=== PATIENT | male | born 1935 | race Caucasian/White ===

== ENCOUNTER 2016-11-12 08:02 | Emergency (ER) | payer MEDICARE, OTHER ==
[~2016-11-12] VITALS: Ht 182.9 cm; Wt 100.0 kg
[~2016-11-12 08:02] MED LIST: ARIC5TAB PO; CARV12.52 PO; CYAN1000P IM; DABI150 PO; DIGO0.12 PO; ESCI20TA PO; FISH1200 PO; LEVO75TA3 PO; METF500 PO; PROT40TA PO; RAMI5CAP36 PO; ZOCO40TA PO
[2016-11-12 08:13] VITALS: BP 143/78; PULSE 69; RESP 18; TEMP 97.4; O2SAT 98
[2016-11-12] MEDS ORDERED: LEVO75TA3 PO (08:28)
[2016-11-12] MEDS ORDERED: PANT40TA3 PO (08:28)
[2016-11-12] MEDS ORDERED: CYAN1000P IM (08:28)
[2016-11-12] MEDS ORDERED: PRAD150C PO (08:28)
[2016-11-12] MEDS ORDERED: RAMI5CAP PO (08:28)
[2016-11-12] MEDS ORDERED: DONE10TA7 PO (08:28)
[2016-11-12] MEDS ORDERED: CITA20TA4 PO (08:28)
[2016-11-12] MEDS ORDERED: CARV12.52 PO (08:28)
[2016-11-12] MEDS ORDERED: METF1000 PO (08:28)
[2016-11-12] MEDS ORDERED: SIMV40TA PO (08:28)
[2016-11-12] MEDS ORDERED: FISH120014 PO (08:28)
[2016-11-12] MEDS ORDERED: DIGO0.127 PO (08:28)
--- NOTE | 2016-11-12 08:34 | PD ---
HPI Chief Complaint: Fall Time Seen by Provider: 08:05 Travel History International Travel<30 days: No Contact w/Intl Traveler<30days: No Traveled to known affect area: No History of Present Illness HPI This patient has a assisted living facility patient who was walking in the courtyard of the facility. He tripped and fell and landed face first. He has history of CVA and has issues with aphasia but can answer questions gesture no and has normal mental status. He is not having any head or neck pain. No LOC. He denies any presyncopal symptoms. He feels fine at this point but does have facial and hand abrasions and a small cut on his lip. Duration 1 hour, symptoms severity is mild. PFSH Past Medical History Hx Anticoagulant Therapy: Yes Arthritis: Yes Asthma: No Atrial Fibrillation: Yes Autoimmune Disease: No Anxiety: No Depression: No Heart Rhythm Problems: Yes (Atrial fibrillation) Cancer: Yes (skin) Cardiac Catheterization: Yes Cardiovascular Problems: Yes High Cholesterol: Yes Chemotherapy: No Chest Pain: No Congestive Heart Failure: Yes COPD: Yes Cerebrovascular Accident: Yes (tia's,cva) Coronary Artery Disease: Yes Diabetes: Yes Patient Takes Glucophage: Yes Endocrine: Yes GERD: Yes Genitourinary: Yes (enlarged prostate) Hiatal Hernia: No Hypertension: Yes Immune Disorder: No Implanted Vascular Access Dvce: Yes Kidney Stones: No Musculoskeletal: Yes Neurologic: No Psychiatric: No Reproductive: No Respiratory: Yes Migraines: No Myocardial Infarction: Yes (x1 1996) Radiation Therapy: No Renal Failure: No Seizures: No Sickle Cell Disease: No Sleep Apnea: No Thyroid Disease: Yes Ulcer: No Influenza Vaccination: Yes Past Surgical History Abdominal Surgery: No AICD: Yes Arteriovenous Shunt: No Cardiac Surgery: Yes (CABG 1996, AICD implant 2008) Coronary Artery Bypass Graft: Yes (5 vessels bypass) Ear Surgery: No Endocrine Surgery: No Eye Surgery: Yes (Cataract removal bilaterally) Genitourinary Surgery: Yes (TURP- several ) Gynecologic Surgery: No Insulin Pump: No Joint Replacement: No Oral Surgery: No Pacemaker: No Thoracic Surgery: No Tonsillectomy: Yes (t & a) Other Surgery: Yes Social History Alcohol Use: Yes (occas, beer or wine) Tobacco Use: No Substance Use: No Allergies-Medications (Allergen,Severity, Reaction): Uncoded Allergies: paper tape (Allergy, Mild, rash, 07/22/16) Reported Meds & Prescriptions Reported Meds & Active Scripts Active Zocor 40 mg (Simvastatin) 40 Mg Tab 0.5 Tab PO HS Ramipril 5 mg (Ramipril) 5 Mg Cap 1 Cap PO DAILY Protonix (Pantoprazole Sodium) 40 Mg Tabdr 40 Mg PO DAILY Glucophage 500 mg (Metformin HCl) 500 Mg Tab 1,000 Mg PO DAILY Levothyroxine 75 mcg (Levothyroxine Sodium) 75 Mcg Tab 75 Mcg PO DAILY Escitalopram Oxalate 20 Mg Tab 20 Mg PO DAILY Digoxin 0.125 mg (Digoxin) 0.125 Mg Tab 0.125 Mg PO DAILY Pradaxa 150 Mg Cap (Dabigatran) 150 Mg Cap 150 Mg PO BID Reported Vitamin B12 (Cyanocobalamin) 1,000 Mcg/Ml Inj 1,000 Mcg IM MONTHLY Fish Oil ([place]-3 Fatty Acids) 1,200 Mg Cap 1 Cap PO DAILY Aricept (Donepezil HCl) 5 Mg Tab 10 Mg PO HS Carvedilol 12.5 mg (Carvedilol) 12.5 Mg Tab 12.5 Mg PO BID Review of Systems General / Constitutional: No: Fever HENT: No: Headaches Cardiovascular: No: Chest Pain or Discomfort Respiratory: No: Cough Physical Exam Narrative GENERAL: Well-nourished, well-developed patient in no apparent distress. SKIN: Warm and dry. Has some minor abrasions to both hands HEAD: Atraumatic. Normocephalic. There is a lipoma to the right forehead. He has facial abrasions but no head injury. Abrasions are on the cheek and lip and nasal bridge. EYES: Pupils equal and round. No scleral icterus. No injection or drainage. ENT: No nasal bleeding or discharge. Mucous membranes pink and moist. There is a very small laceration in the center upper lip 0.5 cm right at the vermilion border. No loose dentition but 1 upper incisor is chipped NECK: Trachea midline. No JVD. No midline tenderness CARDIOVASCULAR: Regular rate and rhythm. No murmur appreciated. RESPIRATORY: No accessory muscle use. Clear to auscultation. Breath sounds equal bilaterally. GASTROINTESTINAL: Abdomen soft, non-tender, nondistended. Hepatic and splenic margins not palpable. MUSCULOSKELETAL: No obvious deformities. No clubbing. No cyanosis. No edema. NEUROLOGICAL: Awake and alert. No obvious cranial nerve deficits. Motor grossly within normal limits. He can say yes or no but does not elaborate beyond that. PSYCHIATRIC: Appropriate mood and affect; insight and judgment normal. Data Data Last Documented VS Vital Signs Date Time Temp Pulse Resp B/P Pulse Ox O2 Delivery O2 Flow Rate FiO2 11/12/16 08:17 69 Room Air 11/12/16 08:13 97.4 18 143/78 98 MDM Medical Decision Making Medical Screen Exam Complete: Yes Emergency Medical Condition: Yes Medical Record Reviewed: Yes Differential Diagnosis Concussion , contusion, laceration Narrative Course I have reviewed the patient's electronic medical record. Patient has what appears to be mechanical fall onto his face with abrasions and a small laceration. Due to its location on the vermilion border I placed 1 stitch as below LACERATION LOCATION: Upper lip LENGTH: 0.5 cm NUMBER OF STITCHES/BRII: 1 REPAIR: The area of the laceration was prepped with Betadine and sterilely draped. No anesthesia needed for one suture . The wound was copiously irrigated and explored without evidence of foreign body, tendon injury or neurovascular injury. The wound was closed using 5-0 Vicryl. This was a single layer repair. A sterile dressing was applied. The patient was advised to keep the dressing clean and dry. Patient tolerated the procedure well. He is given head injury precautions. Despite being on blood thinner, he has no LOC and no headache and is at neurologic baseline. Therefore no indication for emergent brain CT in this asymptomatic patient. His abrasions are cleaned. I gave him a tetanus booster. He is diabetic but his Accu-Chek is normal Diagnosis Primary Impression: Head injury due to trauma Qualified Code: S09.90XA - Head injury due to trauma, initial encounter Additional Impression: Laceration of lip Qualified Code: S01.511A - Laceration of lip, initial encounter Additional Instructions: Follow-up with halfway M.D. Use head injury precautions Med/Other Pt SpecificInfo: Other Disposition: 03 DISCHARGE TO SNF Condition: Stable Brian Rosen MD Nov 12, 2016 08:34
== END 2016-11-12 09:37 | disposition home or self-care (01) ==
LOC: PHED 08:02
DX: S00.81XA Abrasion of other part of head, initial encounter (principal); E78.00 Pure hypercholesterolemia, unspecified; S60.519A Abrasion of unspecified hand, initial encounter; S01.511A Laceration without foreign body of lip, initial encounter; J44.9 Chronic obstructive pulmonary disease, unspecified; E11.9 Type 2 diabetes mellitus without complications; Z79.01 Long term (current) use of anticoagulants; D17.9 Benign lipomatous neoplasm, unspecified; W18.30XA Fall on same level, unspecified, initial encounter; Y93.9 Activity, unspecified; Y92.9 Unspecified place or not applicable; Y99.9 Unspecified external cause status; I10 Essential (primary) hypertension; I48.91 Unspecified atrial fibrillation
CPT/HCPCS: 12011

== ENCOUNTER 2017-04-15 06:31 | Observation (INO) | payer MEDICARE, OTHER ==
[~2017-04-15] VITALS: Ht 188 cm; Wt 109.0 kg
[~2017-04-15 06:31] MED LIST changes: -ARIC5TAB PO; +CITA20TA4 PO; -DABI150 PO; -DIGO0.12 PO; +DIGO0.127 PO; +DONE10TA7 PO; -ESCI20TA PO; -FISH1200 PO; +FISH120014 PO; +METF1000 PO; -METF500 PO; +PANT40TA3 PO; +PRAD150C PO; -PROT40TA PO; +RAMI5CAP PO; -RAMI5CAP36 PO; +SIMV40TA PO; -ZOCO40TA PO
[2017-04-15 06:36] VITALS: BP 154/74; PULSE 59; TEMP 97.7; O2SAT 96
[2017-04-15 06:44] VITALS: O2SAT 98
[2017-04-15] MEDS ORDERED: SODIUM CHLORIDE 0.9% FLUSH 10 ML FLUSH IVF PRN (06:45)
[2017-04-15] MEDS ORDERED: TYLE325T PO (06:56)
[2017-04-15] MEDS ORDERED: DIGO0.25 PO (06:56)
[2017-04-15] MEDS ORDERED: DIGO0.12 PO (06:56)
--- NOTE | 2017-04-15 06:57 | RADRPT ---
EXAM DATE/TIME: 04/15/2017 06:36 [facility] COMPARISON: CHEST SINGLE AP, July 22, 2016, 15:27. INDICATIONS : Chest pain. MEDICAL HISTORY : None. SURGICAL HISTORY : Defibrillator. ENCOUNTER: Initial ACUITY: 1 day PAIN SCORE: 2/10 LOCATION: Bilateral chest FINDINGS: A single view of the chest demonstrates the lungs to be symmetrically aerated without evidence of mas s, infiltrate or effusion. The heart size is enlarged. There is evidence of previous cardiothoracic surgery. There is a pacemaker overlying the left chest. No significant changes compared to the prior exam.. CONCLUSION: No acute disease. No significant change has occurred. Charan Rojas MD on April 15, 2017 at 6:55 Board Certified Radiologist. This report was verified electronically.
[2017-04-15 07:03] LABS: AUTOMATED NEUTROPHIL # 6.1 TH/MM3 (1.8-7.7); BASOPHIL # 0.1 TH/MM3 (0-0.2); EOSINOPHIL # 0.2 TH/MM3 (0-0.4); EOSINOPHIL % 2.3 % (0.0-4.0); HEMATOCRIT 34.1 % (39.0-51.0); HEMO FLAGS DIFF FINAL; LYMPH % 16.9 % (9.0-44.0); LYMPHOCYTE # 1.5 TH/MM3 (1.0-4.8); MEAN CELL VOLUME 94.9 FL (80.0-100.0); MEAN CORPUSCULAR HEMOGLOBIN 32.2 PG (27.0-34.0); MEAN CORPUSCULAR HGB CONC 33.9 % (32.0-36.0); MONO % 9.8 % (0.0-8.0); PLATELET COUNT 239 TH/MM3 (150-450); RED BLOOD COUNT 3.59 MIL/MM3 (4.50-5.90); RED CELL DISTRIBUTION WIDTH 13.8 % (11.6-17.2); WHITE BLOOD COUNT 8.8 TH/MM3 (4.0-11.0)
--- NOTE | 2017-04-15 07:18 | PD ---
HPI Chief Complaint: Chest Pain Time Seen by Provider: 07:05 Travel History International Travel<30 days: No Contact w/Intl Traveler<30days: No Traveled to known affect area: No History of Present Illness HPI 82yo M with PMH of CVA with aphasia, DM, HTN, chronic afib presents from [facility] for chest pain. As per triage note, EVAC states that pt complained of chest pain radiating to left jaw when staff gave him his morning medication. Pt can state yes and no. When asked if he had chest pain this morning, he said yes. When asked if he had chest pain now, he said no. Denies any sob, n/v, abdominal pain. However, history is very limited. As per my nurse, pt had aspirin 162mg and nitroglycerin spray prior to arrival. PFSH Past Medical History Hx Anticoagulant Therapy: Yes Arthritis: Yes Asthma: No Atrial Fibrillation: Yes Autoimmune Disease: No Anxiety: No Depression: No Heart Rhythm Problems: Yes (Atrial fibrillation) Cancer: Yes (skin) Cardiac Catheterization: Yes Cardiovascular Problems: Yes High Cholesterol: Yes Chemotherapy: No Chest Pain: No Congestive Heart Failure: Yes COPD: Yes Cerebrovascular Accident: Yes Coronary Artery Disease: Yes Diabetes: Yes Patient Takes Glucophage: Yes Endocrine: Yes GERD: Yes Genitourinary: Yes (enlarged prostate) Hiatal Hernia: No Hypertension: Yes Immune Disorder: No Implanted Vascular Access Dvce: Yes Kidney Stones: No Musculoskeletal: Yes Neurologic: No Psychiatric: No Reproductive: No Respiratory: Yes Migraines: No Myocardial Infarction: Yes (x1 1996) Radiation Therapy: No Renal Failure: No Seizures: No Sickle Cell Disease: No Sleep Apnea: No Thyroid Disease: Yes Ulcer: No Tetanus Vaccination: Unknown Past Surgical History Abdominal Surgery: No AICD: Yes Arteriovenous Shunt: No Cardiac Surgery: Yes (CABG 1996, AICD implant 2008) Coronary Artery Bypass Graft: Yes (5 vessels bypass) Ear Surgery: No Endocrine Surgery: No Eye Surgery: Yes (Cataract removal bilaterally) Genitourinary Surgery: Yes (TURP- several ) Gynecologic Surgery: No Insulin Pump: No Joint Replacement: No Oral Surgery: No Pacemaker: No Thoracic Surgery: No Tonsillectomy: Yes (t & a) Other Surgery: Yes Social History Alcohol Use: Yes (occas, beer or wine) Tobacco Use: No Substance Use: No Allergies-Medications (Allergen,Severity, Reaction): Uncoded Allergies: paper tape (Allergy, Mild, rash, 07/22/16) Reported Meds & Prescriptions Reported Meds & Active Scripts Active Reported Digoxin 0.25 Mg Tab 0.25 Mg PO ZTUTH Digoxin 0.125 Mg Tab 0.125 Mg PO ZSUMOWEFR SA Tylenol (Acetaminophen) 325 Mg Tab 650 Mg PO BID PRN Simvastatin 40 Mg Tab 40 Mg PO HS Ramipril 5 Mg Cap 5 Mg PO DAILY Pradaxa (Dabigatran) 150 Mg Cap 150 Mg PO BID Pantoprazole (Pantoprazole Sodium) 40 Mg Tab 40 Mg PO DAILY Metformin (Metformin HCl) 1,000 Mg Tab 1,000 Mg PO DAILY With a meal Levothyroxine (Levothyroxine Sodium) 75 Mcg Tab 75 Mcg PO DAILY Donepezil 10 Mg Tab 10 Mg PO HS Cyanocobalamin Inj (Cyanocobalamin) 1,000 Mcg/Ml Inj 1,000 Mcg IM Q30D Citalopram (Citalopram Hydrobromide) 20 Mg Tab 20 Mg PO DAILY Carvedilol 12.5 Mg Tab 12.5 Mg PO BID Review of Systems Except as stated in HPI: all other systems reviewed are Neg Physical Exam Narrative GENERAL: 82yo M not in distress. SKIN: Focused skin assessment warm/dry. HEAD: Atraumatic. Normocephalic. . NECK: Trachea midline. No JVD. CARDIOVASCULAR: Regular rate and rhythm. No murmur appreciated. RESPIRATORY: No accessory muscle use. Clear to auscultation. Breath sounds equal bilaterally. GASTROINTESTINAL: Abdomen soft, non-tender, nondistended. No rebound tenderness or guarding. MUSCULOSKELETAL: No obvious deformities. No clubbing. No cyanosis. No edema. NEUROLOGICAL: Awake and alert. Moves all extremities. Aphasic at baseline. Data Data Last Documented VS Vital Signs Date Time Temp Pulse Resp B/P Pulse Ox O2 Delivery O2 Flow Rate FiO2 04/15/17 07:38 100 20 135/64 97 Room Air 04/15/17 06:36 97.7 Orders B-Type Natriuretic Peptide (04/15/17 06:40) Ckmb (Isoenzyme) Profile (04/15/17 06:40) Complete Blood Count With Diff (04/15/17 06:40) Comprehensive Metabolic Panel (04/15/17 06:40) Digoxin (04/15/17 06:40) Prothrombin Time / Inr (Pt) (04/15/17 06:40) Act Partial Throm Time (Ptt) (04/15/17 06:40) Troponin I (04/15/17 06:40) Chest, Single Ap (04/15/17 06:40) Ecg Monitoring (04/15/17 06:40) Iv Access Insert/Monitor (04/15/17 06:40) Oximetry (04/15/17 06:40) Sodium Chloride 0.9% Flush (Ns Flush) (04/15/17 06:45) Electrocardiogram (04/15/17 ) Potassium Chloride (Kcl) (04/15/17 09:00) Admit Order (Ed Use Only) (04/15/17 09:02) Labs Laboratory Tests Test 04/15/17 06:45 White Blood Count 8.8 TH/MM3 Red Blood Count 3.59 MIL/MM3 Hemoglobin 11.6 GM/DL Hematocrit 34.1 % Mean Corpuscular Volume 94.9 FL Mean Corpuscular Hemoglobin 32.2 PG Mean Corpuscular Hemoglobin 33.9 % Concent Red Cell Distribution Width 13.8 % Platelet Count 239 TH/MM3 Mean Platelet Volume 7.1 FL Neutrophils (%) (Auto) 70.0 % Lymphocytes (%) (Auto) 16.9 % Monocytes (%) (Auto) 9.8 % Eosinophils (%) (Auto) 2.3 % Basophils (%) (Auto) 1.0 % Neutrophils # (Auto) 6.1 TH/MM3 Lymphocytes # (Auto) 1.5 TH/MM3 Monocytes # (Auto) 0.9 TH/MM3 Eosinophils # (Auto) 0.2 TH/MM3 Basophils # (Auto) 0.1 TH/MM3 CBC Comment DIFF FINAL Differential Comment Prothrombin Time 10.9 SEC Prothromb Time International 1.0 RATIO Ratio Activated Partial 27.9 SEC Thromboplast Time Sodium Level 142 MEQ/L Potassium Level 3.3 MEQ/L Chloride Level 103 MEQ/L Carbon Dioxide Level 29.2 MEQ/L Anion Gap 10 MEQ/L Blood Urea Nitrogen 16 MG/DL Creatinine 0.85 MG/DL Estimat Glomerular Filtration 86 ML/MIN Rate Random Glucose 114 MG/DL Calcium Level 8.7 MG/DL Total Bilirubin 0.9 MG/DL Aspartate Amino Transf 14 U/L (AST/SGOT) Alanine Aminotransferase 25 U/L (ALT/SGPT) Alkaline Phosphatase 40 U/L Total Creatine Kinase 58 U/L Troponin I 0.03 NG/ML B-Type Natriuretic Peptide 254 PG/ML Total Protein 7.2 GM/DL Albumin 3.8 GM/DL Digoxin Level 0.9 NG/ML MDM Medical Decision Making Medical Screen Exam Complete: Yes Emergency Medical Condition: Yes Interpretation(s) EKG: Paced rhythm. RBBB. No ST segment elevation in concordance. Last Impressions Chest X-Ray 04/15/17 0640 Signed Impressions: Service Date/Time: , April 15, 2017 06:36 - CONCLUSION: No acute disease. No significant change has occurred. Charan Rojas MD Laboratory Tests Test 04/15/17 06:45 White Blood Count 8.8 TH/MM3 (4.0-11.0) Red Blood Count 3.59 MIL/MM3 (4.50-5.90) Hemoglobin 11.6 GM/DL (13.0-17.0) Hematocrit 34.1 % (39.0-51.0) Mean Corpuscular Volume 94.9 FL (80.0-100.0) Mean Corpuscular Hemoglobin 32.2 PG (27.0-34.0) Mean Corpuscular Hemoglobin 33.9 % Concent (32.0-36.0) Red Cell Distribution Width 13.8 % (11.6-17.2) Platelet Count 239 TH/MM3 (150-450) Mean Platelet Volume 7.1 FL (7.0-11.0) Neutrophils (%) (Auto) 70.0 % (16.0-70.0) Lymphocytes (%) (Auto) 16.9 % (9.0-44.0) Monocytes (%) (Auto) 9.8 % (0.0-8.0) Eosinophils (%) (Auto) 2.3 % (0.0-4.0) Basophils (%) (Auto) 1.0 % (0.0-2.0) Neutrophils # (Auto) 6.1 TH/MM3 (1.8-7.7) Lymphocytes # (Auto) 1.5 TH/MM3 (1.0-4.8) Monocytes # (Auto) 0.9 TH/MM3 (0-0.9) Eosinophils # (Auto) 0.2 TH/MM3 (0-0.4) Basophils # (Auto) 0.1 TH/MM3 (0-0.2) CBC Comment DIFF FINAL Differential Comment Prothrombin Time 10.9 SEC (9.8-11.6) Prothromb Time International 1.0 RATIO Ratio Activated Partial 27.9 SEC Thromboplast Time (24.3-30.1) Sodium Level 142 MEQ/L (136-145) Potassium Level 3.3 MEQ/L (3.5-5.1) Chloride Level 103 MEQ/L (98-107) Carbon Dioxide Level 29.2 MEQ/L (21.0-32.0) Anion Gap 10 MEQ/L (5-15) Blood Urea Nitrogen 16 MG/DL (7-18) Creatinine 0.85 MG/DL (0.60-1.30) Estimat Glomerular Filtration 86 ML/MIN (>89) Rate Random Glucose 114 MG/DL (74-106) Calcium Level 8.7 MG/DL (8.5-10.1) Total Bilirubin 0.9 MG/DL (0.2-1.0) Aspartate Amino Transf 14 U/L (15-37) (AST/SGOT) Alanine Aminotransferase 25 U/L (12-78) (ALT/SGPT) Alkaline Phosphatase 40 U/L (45-117) Total Creatine Kinase 58 U/L (39-308) Troponin I 0.03 NG/ML (0.02-0.05) B-Type Natriuretic Peptide 254 PG/ML (0-100) Total Protein 7.2 GM/DL (6.4-8.2) Albumin 3.8 GM/DL (3.4-5.0) Digoxin Level 0.9 NG/ML (0.8-2.0) Differential Diagnosis ACS vs. atypical chest pain vs. pneumonia Narrative Course 82yo M who is aphasic here with chest pain today. History is limited but pt states yes to having chest pain today and no to currently having chest pain. Pt also confirmed that with my nurse separately and said yes when she asked if he was having chest pain radiating to his jaw. He said no to having chest pain now. Then gave her a thumbs up. Labs reviewed, no leukocytosis. Troponin negative at 0.03. BNP 254. K: 3.3, replaced orally. Digoxin level therapeutic at 0.9. CXR negative. Given that pt did have chest pain and work up so far is negative, will admit to chest pain center for serial EKG and cardiac enzymes. Diagnosis Primary Impression: Chest pain Qualified Code: R07.9 - Chest pain, unspecified type Admitting Information Admitting Physician Requests: Lisset Ortega DO Apr 15, 2017 07:18
[2017-04-15 07:22] LABS: APTT (PATIENT) 27.9 SEC (24.3-30.1); PROTHROMBIN TIME - PATIENT 10.9 SEC (9.8-11.6)
[2017-04-15 07:26] LABS: ALT (GPT) 25 U/L (12-78); ANION GAP 10 MEQ/L (5-15); AST (GOT) 14 U/L (15-37); BICARBONATE 29.2 MEQ/L (21.0-32.0); BLOOD UREA NITROGEN 16 MG/DL (7-18); CHLORIDE 103 MEQ/L (98-107); GLOMERULAR FILTRATION RATE 86 ML/MIN (>89); POTASSIUM 3.3 MEQ/L (3.5-5.1); SODIUM (NA) 142 MEQ/L (136-145)
[2017-04-15 07:38] VITALS: BP 135/64; PULSE 100; RESP 20; O2SAT 97
[2017-04-15 07:42] LABS: ALKALINE PHOSPHATASE 40 U/L (45-117); DIGOXIN 0.9 NG/ML (0.8-2.0); TOTAL BILIRUBIN ADULT 0.9 MG/DL (0.2-1.0)
[2017-04-15 07:44] LABS: CREATINE KINASE 58 U/L (39-308)
[2017-04-15] MEDS ORDERED: POTASSIUM CHLORIDE 20 MEQ CONTROLLED RELEASE TAB PO ONE (09:00)
[2017-04-15 09:37] VITALS: BP 140/68; PULSE 60; RESP 18; O2SAT 97
[2017-04-15] MEDS ORDERED: SODIUM CHLORIDE 0.9% FLUSH 5 ML FLUSH IVF PRN (10:30)
[2017-04-15] MEDS ORDERED: ACETAMINOPHEN 500 MG CPLT PO PRN (10:30)
[2017-04-15] MEDS ORDERED: ONDANSETRON HCL 4 MG/2 ML VIAL IV PRN (10:30)
[2017-04-15] MEDS ORDERED: ACETAMINOPHEN/HYDROcodone 325 MG/7.5 MG TAB PO PRN (10:30)
--- NOTE | 2017-04-15 10:53 | HHI.HP ---
HPI Primary Care Physician Alyssa Pearce Chief Complaint Chest pain History of Present Illness This is a 82-year-old male that presents to ED via [facility] from [facility] with history of CAD, diabetes, CVA, dementia, hyperlipidemia, and defibrillator/ pacemaker with complaint of chest discomfort. Patient has had a stroke and has dementia and his story is somewhat difficult to ascertain. He is able to whisper that he had a heaviness this morning. He points to the left side of his chest and other times he'll point to the right side of his chest. Other times revealed denies having chest discomfort. He is unable to describe it any further. He is confused. He thinks that PABLO is the president. Does not know the month or year. Does not know where he lives. Review of Systems ROS Limitations: Poor Historian, Other Cardiovascular: COMPLAINS OF: Chest pain Past Family Social History Allergies: Uncoded Allergies: paper tape (Allergy, Mild, rash, 07/22/16) Past Medical History CVA, diabetes, CAD with bypass, chronic A. fib, paced rhythm, defibrillator, dementia, GERD, hypothyroidism. Past Surgical History He has had a bypass. He has a defibrillator/pacemaker. Reported Medications Reported Meds & Active Scripts Active Reported Digoxin 0.25 Mg Tab 0.25 Mg PO ZTUTH Digoxin 0.125 Mg Tab 0.125 Mg PO ZSUMOWEFR SA Tylenol (Acetaminophen) 325 Mg Tab 650 Mg PO BID PRN Simvastatin 40 Mg Tab 40 Mg PO HS Ramipril 5 Mg Cap 5 Mg PO DAILY Pradaxa (Dabigatran) 150 Mg Cap 150 Mg PO BID Pantoprazole (Pantoprazole Sodium) 40 Mg Tab 40 Mg PO DAILY Metformin (Metformin HCl) 1,000 Mg Tab 1,000 Mg PO DAILY With a meal Levothyroxine (Levothyroxine Sodium) 75 Mcg Tab 75 Mcg PO DAILY Donepezil 10 Mg Tab 10 Mg PO HS Cyanocobalamin Inj (Cyanocobalamin) 1,000 Mcg/Ml Inj 1,000 Mcg IM Q30D Citalopram (Citalopram Hydrobromide) 20 Mg Tab 20 Mg PO DAILY Carvedilol 12.5 Mg Tab 12.5 Mg PO BID Active Ordered Medications Current Medications Medications (Trade) Dose Ordered Sig/Antonio Route Start Time Stop Time Status Last Admin (NS Flush) 2 ml UNSCH PRN IVF 04/15/17 06:45 (NS Flush) 2 ml UNSCH PRN IVF 04/15/17 10:30 UNV (NS Flush) 2 ml BID IVF 04/15/17 21:00 UNV (Tylenol) 500 mg Q4H PRN PO 04/15/17 10:30 UNV ([place]odus 7.5-325 Mg) 1 tab Q4H PRN PO 04/15/17 10:30 UNV (Zofran Inj) 4 mg Q6H PRN IV 04/15/17 10:30 UNV (Aspirin) 325 mg DAILY PO 04/16/17 09:00 UNV (Tylenol) 650 mg BID PRN PO 04/15/17 11:00 UNV (Coreg) 12.5 mg BID PO 04/15/17 21:00 UNV (CeleXA) 20 mg DAILY PO 04/16/17 09:00 UNV (Vitamin B12 Inj) 1,000 mcg Q30D IM 04/15/17 11:00 UNV (Pradaxa) 150 mg BID PO 04/15/17 21:00 UNV (Aricept) 10 mg HS PO 04/15/17 21:00 UNV (Synthroid) 75 mcg DAILY PO 04/16/17 09:00 UNV (Protonix) 40 mg DAILY PO 04/16/17 09:00 UNV (Altace) 5 mg DAILY PO 04/16/17 09:00 UNV Non-Formulary Medication 40 mg HS PO 04/15/17 21:00 UNV Family History Unaware family history. Social History Does not smoke, drink alcohol, or use illicit drugs. Physical Exam Vital Signs Vital Signs Date Time Temp Pulse Resp B/P Pulse Ox O2 Delivery O2 Flow Rate FiO2 04/15/17 09:37 60 18 140/68 97 Room Air 04/15/17 07:38 100 20 135/64 97 Room Air 04/15/17 06:44 98 Room Air 04/15/17 06:36 97.7 59 154/74 96 Physical Exam GENERAL: This is a well-nourished, well-developed patient, in no apparent distress. Patient speaks in clear complete sentences. Patient is pleasant. HEENT: Head is atraumatic and normocephalic. Neck is supple without lymphadenopathy and trachea is midline. No JVD or carotid bruits. CARDIOVASCULAR: Heart rate is irregular without murmurs, gallops, or rubs. RESPIRATORY: Clear to auscultation. Breath sounds equal bilaterally. No wheezes , rales, or rhonchi. Chest wall is nontender. No use of accessory muscles. GASTROINTESTINAL: There is tenderness on palpating throughout his abdomen but more pronounced midline. Difficult to palpate aorta as he is pushing back during palpation. No CVA tenderness. Strong femoral pulses bilaterally. Normal bowel sounds in all quadrants. MUSCULOSKELETAL: Patient is moving upper and lower extremities freely. No calf tenderness or edema, no Homans sign. Strong pulses in upper and lower extremities. NEUROLOGICAL: Patient is not oriented. He thinks PABLO is the president. Does not know the month or year. Does not know where he lives. Cranial nerves 2-12 are grossly intact. No focal deficits. He speaks however is in a very soft whisper. SKIN: No rash and turgor is normal. Laboratory Laboratory Tests Test 04/15/17 06:45 White Blood Count 8.8 Red Blood Count 3.59 Hemoglobin 11.6 Hematocrit 34.1 Mean Corpuscular Volume 94.9 Mean Corpuscular Hemoglobin 32.2 Mean Corpuscular Hemoglobin 33.9 Concent Red Cell Distribution Width 13.8 Platelet Count 239 Mean Platelet Volume 7.1 Neutrophils (%) (Auto) 70.0 Lymphocytes (%) (Auto) 16.9 Monocytes (%) (Auto) 9.8 Eosinophils (%) (Auto) 2.3 Basophils (%) (Auto) 1.0 Neutrophils # (Auto) 6.1 Lymphocytes # (Auto) 1.5 Monocytes # (Auto) 0.9 Eosinophils # (Auto) 0.2 Basophils # (Auto) 0.1 CBC Comment DIFF FINAL Differential Comment Prothrombin Time 10.9 Prothromb Time International 1.0 Ratio Activated Partial 27.9 Thromboplast Time Sodium Level 142 Potassium Level 3.3 Chloride Level 103 Carbon Dioxide Level 29.2 Anion Gap 10 Blood Urea Nitrogen 16 Creatinine 0.85 Estimat Glomerular Filtration 86 Rate Random Glucose 114 Calcium Level 8.7 Total Bilirubin 0.9 Aspartate Amino Transf 14 (AST/SGOT) Alanine Aminotransferase 25 (ALT/SGPT) Alkaline Phosphatase 40 Total Creatine Kinase 58 Troponin I 0.03 B-Type Natriuretic Peptide 254 Total Protein 7.2 Albumin 3.8 Digoxin Level 0.9 Result Diagram: 04/15/17 0645 04/15/17 0645 Imaging Vital Signs Date Time Temp Pulse Resp B/P Pulse Ox O2 Delivery O2 Flow Rate FiO2 04/15/17 09:37 60 18 140/68 97 Room Air 04/15/17 07:38 100 20 135/64 97 Room Air 04/15/17 06:44 98 Room Air 04/15/17 06:36 97.7 59 154/74 96 Last 48 hours Impressions Chest X-Ray 04/15/1740 Signed Impressions: Service Date/Time: March 06:36 - CONCLUSION: No acute disease. No significant change has occurred. Charan Rojas MD Course EKG is ventricular paced. Assessment and Plan Assessment and Plan * Chest pain: Patient will continue to have serial cardiac enzymes and EKGs for ruling out purposes. Further plan to be determined after Dr. Sanchez evaluates the patient. * Abdominal pain: We'll get a CT abdomen and pelvis. * Hyperlipidemia: Continue current medication. * Dementia: Continue current medication. * Diabetes: We'll use sliding scale coverage. Will need to withhold metformin for [address] with contrast. Resume afterwards. Follow diabetic diet. * GERD: Continue current medication. * CAD: Patient has had bypass. He has a defibrillator. He has A. fib. He will need to follow-up with his delivery helper. The nurse was able to speak with the patient's . The stated that he saw the delivery helper Dr. Stokes June 2016. The defibrillator/pacer was interrogated. This found that the battery was closed of end-of-life however she states that the patient did not want to have the device changed. She reminded the nurse that he is a DNR. The nurse made his aware that he is being admitted and was being further evaluated at this time. Andrew Lopez Apr 15, 2017 10:53
[2017-04-15] MEDS ORDERED: DIATRIZOATE MEGLUM/DIATRIZOATE SOD 9 ML CUP ONE (10:54)
[2017-04-15] MEDS ORDERED: CYANOCOBALAMIN 1000 MCG/ML VIAL IM SCH (11:00)
[2017-04-15] MEDS ORDERED: DEXTROSE 50% IN WATER 50 ML VIAL(D50) IV PRN (11:00)
[2017-04-15] MEDS ORDERED: ACETAMINOPHEN 325 MG TAB PO PRN (11:00)
[2017-04-15] MEDS ORDERED: GLUCAGON 1 MG/ML VIAL IM/SQ PRN (11:00)
[2017-04-15 11:30] VITALS: O2SAT 92
[2017-04-15] MEDS ORDERED: INSULIN ASPART SUPPLEMENTAL SCALE SQ SCH (13:00)
[2017-04-15] MEDS ORDERED: IOHEXOL 350 MG/ML 10 ML VIAL (for RAD DIAG) IV ONE (13:17)
[2017-04-15] MEDS ORDERED: DIATRIZOATE MEGLUM/DIATRIZOATE SOD 9 ML CUP PO ONE (13:30)
[2017-04-15 13:39] VITALS: BP 152/63; PULSE 60; RESP 18; O2SAT 97
--- NOTE | 2017-04-15 13:49 | RADRPT ---
EXAM DATE/TIME: 04/15/2017 13:05 [place] COMPARISON: No previous studies available for comparison. INDICATIONS : Generalized abdominal pain. IV CONTRAST: 96 cc Omnipaque 350 (iohexol) IV ORAL CONTRAST: Partial prescribed oral contrast ingested. RADIATION DOSE: 10.06 CTDIvol (mGy) MEDICAL HISTORY : Cardiovascular disease. Hypertension. Benign prostatic hyperplasia, (BPH) SURGICAL HISTORY : CABG ENCOUNTER: Initial ACUITY: 1 day PAIN SCALE: 2/10 LOCATION: Bilateral abdomen TECHNIQUE: Volumetric scanning of the abdomen and pelvis was performed. Using automated exposure control and ad justment of the mA and/or kV according to patient size, radiation dose was kept as low as reasonably achievable to obtain optimal diagnostic quality images. DICOM format image data is available electro nically for review and comparison. FINDINGS: LOWER LUNGS: The visualized lower lungs are clear. LIVER: Slightly heterogeneous and nodular without lesion. There is no dilation of the biliary tree. No lc cified gallstones. SPLEEN: Normal size without lesion. PANCREAS: Within normal limits. KIDNEYS: Normal in size and shape. There is no mass, stone or hydronephrosis on the right. 10 mm nonobstructi ng calculus left lower pole kidney. ADRENAL GLANDS: Within normal limits. VASCULAR: There is no aortic aneurysm. BOWEL/MESENTERY: The stomach, small bowel, and colon demonstrate no acute abnormality. There is no free intraperitone al air or fluid. Normal appendix. ABDOMINAL WALL: Within normal limits. RETROPERITONEUM: There is no lymphadenopathy. BLADDER: No wall thickening or mass. REPRODUCTIVE: Within normal limits. INGUINAL: There is no lymphadenopathy or hernia. MUSCULOSKELETAL: Degenerative changes thoracic spine. CONCLUSION: 1. Nonobstructing 10 mm left lower pole renal calculus. 2. No acute inflammatory process. 3. Liver is slightly heterogeneous and nodular and may be related to early morphologic changes of cir rhosis. 4. Cardiomegaly and pacemaker leads. 5. No acute inflammatory process. Octaviano Aponte MD on April 15, 2017 at 13:44 Board Certified Radiologist. This report was verified electronically.
[2017-04-15] MEDS ORDERED: DIGOXIN 0.25 MG TAB PO SCH (14:00)
--- NOTE | 2017-04-15 14:01 | HHI.DCPOC ---
Discharge Care Plan Diagnosis: (1) Chest pain (2) Abdominal pain (3) CAD (coronary artery disease) (4) Hx of CABG (5) Atrial fibrillation (6) AICD (automatic cardioverter/defibrillator) present (7) Pacemaker (8) DM type 2 (diabetes mellitus, type 2) (9) Hypertension (10) GERD (gastroesophageal reflux disease) (11) Dementia (12) History of CVA (cerebrovascular accident) (13) Kidney calculi Goals to Promote Your Health * To prevent worsening of your condition and complications * To maintain your health at the optimal level Directions to Meet Your Goals Take your medications as prescribed Follow your dietary instruction Follow activity as directed Keep your appointments as scheduled Take your immunizations and boosters as scheduled If your symptoms worsen call your PCP, if no PCP go to Urgent Care Center or Emergency Room Smoking is Dangerous to Your Health. Avoid second hand smoke Call the 24-hour hour crisis hotline for domestic abuse at Andrew Lopez Apr 15, 2017 14:01
[2017-04-15] MEDS ORDERED: CARVEDILOL 12.5 MG TAB PO SCH (21:00)
[2017-04-15] MEDS ORDERED: PRAVASTATIN SOD 80 MG TAB PO SCH (21:00)
[2017-04-15] MEDS ORDERED: SODIUM CHLORIDE 0.9% FLUSH 5 ML FLUSH IVF SCH (21:00)
[2017-04-15] MEDS ORDERED: DONEPEZIL HCL 5 MG TAB PO SCH (21:00)
[2017-04-15] MEDS ORDERED: DABIGATRAN ETEXILATE 150 MG CAP PO SCH (21:00)
[2017-04-16] MEDS ORDERED: LEVOTHYROXINE SODIUM 75 MCG TAB PO SCH (06:00)
[2017-04-16] MEDS ORDERED: RAMIPRIL 5 MG CAP PO SCH (09:00)
[2017-04-16] MEDS ORDERED: CITALOPRAM HYDROBROMIDE 20 MG TAB PO SCH (09:00)
[2017-04-16] MEDS ORDERED: PANTOPRAZOLE SOD 40 MG DELAYED RELEASE TAB PO SCH (09:00)
[2017-04-16] MEDS ORDERED: ASPIRIN 325 MG TAB PO SCH (09:00)
--- NOTE | 2017-04-16 12:46 | EKG ---
Date Performed: 04/15/2017 Time Performed: 12:47:56 PTAGE: 82 years EKG: ELECTRONIC VENTRICULAR PACEMAKER ABNORMAL RHYTHM ECG NON SPECIFIC T WAVE CHANGES IN LATERAL LEADS PREVIOUS TRACING : 04/15/2017 11.16 Since previous tracing, no significant change noted DOCTOR: Wu Sanchez Interpretating Date/Time 04/16/2017 12:46:15
--- NOTE | 2017-04-16 12:48 | EKG ---
Date Performed: 04/15/2017 Time Performed: 11:16:46 PTAGE: 82 years EKG: UNCERTAIN IRREGULAR RHYTHM ELECTRONIC VENTRICULAR PACEMAKER -- CONTOUR ANALYSIS BASED ON IN TRINSIC RHYTHM RIGHT BUNDLE BRANCH BLOCK INFERIOR MYOCARDIAL INFARCTION MODERATE T-WAVE ABNORMALITY, CONSIDER LATERAL ISCHEMIA ABNORMAL ECG PREVIOUS TRACING : 04/15/2017 06.36 Since previous tracing, no significant change noted DOCTOR: Wu Sanchez Interpretating Date/Time 04/16/2017 12:46:53
--- NOTE | 2017-04-16 12:49 | EKG ---
Date Performed: 04/15/2017 Time Performed: 06:36:19 PTAGE: 82 years EKG: ELECTRONIC VENTRICULAR PACEMAKER -- CONTOUR ANALYSIS BASED ON INTRINSIC RHYTHM RIGHT BUNDLE BRANCH BLOCK INFERIOR MYOCARDIAL INFARCTION MODERATE T-WAVE ABNORMALITY, CONSIDER LATERAL ISCHEMIA A BNORMAL ECG NO PREVIOUS TRACING DOCTOR: Wu Sanchez Interpretating Date/Time 04/16/2017 12:47:34
[2017-04-16] MEDS ORDERED: DIGOXIN 0.125 MG TAB PO SCH (14:00)
== END 2017-04-15 15:23 | disposition home or self-care (01) ==
LOC: NEPC 06:31 → NEDA 09:03 → NEPGCP 13:47
PROVIDERS: ADMIT Internal Medicine Cardiovascular Disease; ATTEND Internal Medicine Cardiovascular Disease
DX: R07.89 Other chest pain (principal); I25.10 Atherosclerotic heart disease of native coronary artery without angina pectoris; I48.91 Unspecified atrial fibrillation; Z95.810 Presence of automatic (implantable) cardiac defibrillator; E11.9 Type 2 diabetes mellitus without complications; I10 Essential (primary) hypertension; K21.9 Gastro-esophageal reflux disease without esophagitis; E78.5 Hyperlipidemia, unspecified; E03.9 Hypothyroidism, unspecified; F03.90 Unspecified dementia, unspecified severity, without behavioral disturbance, psychotic disturbance, mood disturbance, and anxiety; Z86.73 Personal history of transient ischemic attack (TIA), and cerebral infarction without residual deficits; Z79.01 Long term (current) use of anticoagulants; Z95.1 Presence of aortocoronary bypass graft; Z79.899 Other long term (current) drug therapy; R94.31 Abnormal electrocardiogram [ECG] [EKG]; Z79.84 Long term (current) use of oral hypoglycemic drugs
CPT/HCPCS: 71010; 74177; 80053; 80162; 82550; 82948; 83880; 84484; 85025; 85610; 85730; 93005; 99285; G0378; Q9967; Q9963